=== PATIENT | female | born 1995 | race Caucasian/White ===

== ENCOUNTER 2016-09-17 01:50 | Inpatient (IN) | payer OTHER ==
[2016-09-17 03:36] LABS: HEMOGLOBIN 11.4 gm/dl (12.3-15.3); RED BLOOD COUNT 4.41 M/UL (4.00-5.10); WHITE BLOOD COUNT 17.4 K/UL (4.5-11.0)
[2016-09-19] MEDS ORDERED: COLACE 100MG C100 MG PO (13:19)
== END 2016-09-19 15:04 | disposition home or self-care (01) | DRG 774 ==
LOC: GENOP 01:50 → OB 02:58
PROVIDERS: ADMIT Obstetrics & Gynecology
PROC: 10E0XZZ Delivery of Products of Conception, External Approach (ICD-10-PCS; principal; 2016-09-17)
PROC: 3E0234Z Introduction of Serum, Toxoid and Vaccine into Muscle, Percutaneous Approach (ICD-10-PCS; 2016-09-17)
DX: O75.89 Other specified complications of labor and delivery (principal); O86.4 Pyrexia of unknown origin following delivery; J45.909 Unspecified asthma, uncomplicated; R22.43 Localized swelling, mass and lump, lower limb, bilateral; Z3A.38 38 weeks gestation of pregnancy; Z37.0 Single live birth; Z80.0 Family history of malignant neoplasm of digestive organs; Z80.49 Family history of malignant neoplasm of other genital organs; Z83.3 Family history of diabetes mellitus; Z82.49 Family history of ischemic heart disease and other diseases of the circulatory system; Z23 Encounter for immunization
CPT/HCPCS: 36415; 82800; 83518; 85007; 85014; 85018; 85027; 90715; J2300; J2590; J3430; J7120; Q2039

== ENCOUNTER 2021-11-21 11:22 | Inpatient (IN) | payer OTHER ==
[~2021-11-21] VITALS: Ht 154.9 cm; Wt 102.5 kg
[~2021-11-21 11:22] MED LIST: COLACE 100MG C100 MG PO
[2021-11-21 12:25] LABS: HEMOGLOBIN 10.5 gm/dl (12.3-15.3); RED BLOOD COUNT 3.97 M/UL (4.00-5.10); WHITE BLOOD COUNT 14.1 K/UL (4.5-11.0)
[2021-11-21] MEDS ORDERED: TRANDATE 100 M100 MG PO (13:27)
[2021-11-21] MEDS ORDERED: PRENATAL VITAM1 EAC3 PO (13:28)
[2021-11-21] MEDS ORDERED: DOCUSATE SODIU100 MG PO (18:48)
[2021-11-21] MEDS ORDERED: IBUPROFEN600 MG PO (18:48)
[2021-11-22 04:40] LABS: HEMOGLOBIN 10.2 gm/dl (12.3-15.3)
== END 2021-11-23 14:51 | disposition home or self-care (01) | DRG 807 ==
LOC: GENOP 11:22 → OB 12:06
PROVIDERS: ADMIT Obstetrics & Gynecology
PROC: 10E0XZZ Delivery of Products of Conception, External Approach (ICD-10-PCS; principal; 2021-11-21)
PROC: 10907ZC Drainage of Amniotic Fluid, Therapeutic from Products of Conception, Via Natural or Artificial Opening (ICD-10-PCS; 2021-11-21)
PROC: 4A1HXCZ Monitoring of Products of Conception, Cardiac Rate, External Approach (ICD-10-PCS; 2021-11-21)
PROC: 3E0234Z Introduction of Serum, Toxoid and Vaccine into Muscle, Percutaneous Approach (ICD-10-PCS; 2021-11-21)
DX: O99.214 Obesity complicating childbirth (principal); Z37.0 Single live birth; O76 Abnormality in fetal heart rate and rhythm complicating labor and delivery; Z3A.35 35 weeks gestation of pregnancy; Z20.822 Contact with and (suspected) exposure to COVID-19; E66.9 Obesity, unspecified; Z80.0 Family history of malignant neoplasm of digestive organs; Z83.3 Family history of diabetes mellitus; Z82.5 Family history of asthma and other chronic lower respiratory diseases; Z84.1 Family history of disorders of kidney and ureter; Z82.0 Family history of epilepsy and other diseases of the nervous system; O99.824 Streptococcus B carrier state complicating childbirth; Z98.890 Other specified postprocedural states; Z23 Encounter for immunization
CPT/HCPCS: 36415; 81001; 82800; 85014; 85018; 85025; 90715; J2300; J2590; J3010; J7120